=== PATIENT | male | born 1940 | race African-American/Black ===

== ENCOUNTER 2017-10-24 07:20 | Day surgery (SDC) | END 2017-10-24 15:25 | disposition home or self-care (01) ==

== ENCOUNTER 2018-01-25 12:19 | Day surgery (SDC) | END 2018-01-25 15:54 | disposition home or self-care (01) ==

== ENCOUNTER 2018-01-25 16:50 | Emergency (ER) | END 2018-01-25 19:10 | disposition home or self-care (01) ==